=== PATIENT | male | born 1975 ===

== ENCOUNTER → 2018-05-17 | Outpatient (CLI) | payer OTHER ==
[~2018-05-17] MED LIST: DOCU-416 PO; FLU60VIA41 IM; MULT-1335 PO; OXYC-373 PO
== END ==
LOC: LAB 11:42
PROVIDERS: ATTEND Internal Medicine
DX: E78.5 Hyperlipidemia, unspecified (principal); R10.9 Unspecified abdominal pain
CPT/HCPCS: 36415; 81001; 82150; 83690

== ENCOUNTER → 2018-07-10 | Outpatient (CLI) | payer OTHER ==
--- NOTE | 2018-07-10 09:40 | RADIOLOGY IMAGING REPORT ---
FACILITY: [facility] PATIENT NAME: Vladimir Cardoza : 1975 MR: [id number] V: [id number] EXAM DATE: ORDERING PHYSICIAN: WANDA LOWRY TECHNOLOGIST: Location: [facility] Patient: Vladimir Cardoza : 1975 Visit/Account:[id number] Date of Sevice: 07/10/2018 EXAMINATION: Abdominal ultrasound complete HISTORY: Abdomen pain, hyperlipidemia COMPARISON: None. FINDINGS: Gallbladder: No stones, wall thickening, pericholecystic fluid or sonographic Coy sign. Liver: Negative. Common duct: Normal measuring three mm. Pancreas: Negative. Spleen: Normal in size and echogenicity measuring 10.6 cm in length. Kidneys: There is an 8 mm cyst in the interpolar region of the right kidney. There is a 1 cm cyst i n the interpolar region of the left kidney, the right measures 10.3 cm in length, and the left 13.3 c m. No hydronephrosis. Upper abdominal aorta and IVC: Negative. Ascites: None. IMPRESSION: Small bilateral renal cysts Report Dictated By: Melinda Christian MD at 07/10/2018 9:24 AM Report E-Signed By: Melinda Christian MD at 07/10/2018 9:36 AM WSN:[email or web address]
== END ==
LOC: US 00:54
PROVIDERS: ATTEND Internal Medicine
DX: N28.1 Cyst of kidney, acquired (principal)
CPT/HCPCS: 76700

== ENCOUNTER 2018-07-12 00:12 | Day surgery (SDC) | payer OTHER ==
[~2018-07-12] VITALS: Ht 185.4 cm; Wt 78.9 kg
[2018-07-12] MEDS ORDERED: LIDOCAINE MPF 1% 5 ML VIAL ONE (09:41)
[2018-07-12] MEDS ORDERED: PROPOFOL EMUL(*) 10MG/ML 20 ML 40 ML ONE (09:41)
[2018-07-12] MEDS ORDERED: NORMOSOL R SOLN(*) 1000 ML BAG 1,000 ML IV PRN (10:00)
[2018-07-12] MEDS ORDERED: LIDOCAINE/SOD BICARB 8.4% SYR ID ONE (10:00)
[2018-07-12 10:13] VITALS: BP 138/95
[2018-07-12] MEDS ORDERED: PROPOFOL EMUL(*) 10MG/ML 20 ML 20 ML ONE (11:50)
[2018-07-12 11:59] VITALS: BP 111/80
--- NOTE | 2018-07-12 12:10 | NUR ---
1206 PT AROUSES, PLACED ON RA, STATES HE FEELS LIKE HE NEEDS TO USE THE RESTROOM. EDUCATED THAT HE HAD BANDING DONE AND THAT IS PROBABLY THE FEEL ING HE IS HAVING 1208 PT DECIDED HE DIDN'T WANT TO USE THE BEDPAN, PT MORE AWAKE 1210 DR POND INTO ROOM TALKING W/PT PT ALERT, ASKING QUESTIONS
[2018-07-12 12:15] VITALS: BP 126/90
[2018-07-12 12:26] VITALS: BP 115/82
--- NOTE | 2018-07-12 12:26 | Short(Outpt) Discharge Summary ---
Discharge Summary Reason for Hosp/Final Diag: (1) Blood per rectum Hospital Course & Plan: pt presented for colonoscopy and hemorrhoid banding. he tolerated the procedure well. he will be discharged home when criteria met. Departure Discharge to: Home Discharge Instructions Home Meds Reported Medications Multivitamin With Minerals (MULTIPLE VITAMIN) 1 Each Tablet, 1 EACH PO, TAB 05/17/18 Diet: Regular Activity: As Tolerated Special Instructions: call if the bleeding continues MACHO LOMAS July 12, 2018 12:26
== END 2018-07-12 12:45 | disposition home or self-care (01) ==
LOC: OR 00:12
PROVIDERS: ATTEND Surgery
DX: K64.8 Other hemorrhoids (principal)
CPT/HCPCS: 00811; 45380; 46221; 88305; J2001; J2704